=== PATIENT | female | born 1965 | race Caucasian/White ===

== ENCOUNTER 2017-04-20 15:21 | Emergency (ER) | payer BC, OTHER ==
[2017-04-20] MEDS ORDERED: NS 0.9% 1000 ML* 1,000 ML IV ONE (17:28)
[2017-04-20 17:52] LABS: ABS Basophils 0 10^3/ul (0-0.2); ABS Eosinophils 0.1 10^3/ul (0-0.6); ABS Lymphocytes 1.7 10^3/ul (1.0-4.8); ABS Monocytes 0.4 10^3/ul (0-0.8); ABS Neutrophils 4.5 10^3/ul (1.5-7.7); ABS Nucleated RBC 0 10^3/ul; Eosinophil % 1.8 % (0-6); Hematocrit 40 % (35-47); Hemoglobin 13.9 g/dl (12.0-16.0); Lymphocyte % 25.1 % (25-47); Mean Corpuscular HGB Conc 35 g/dl (31-36); Mean Corpuscular Hemoglobin 30 pg (27-31); Mean Corpuscular Volume 87 fL (80-97); Mean Platelet Volume 8 um3 (7.4-10.4); Nucleated Red Blood Cells % 0; Platelet Count 246 10^3/ul (150-450); Red Blood Count 4.63 10^6/ul (4.0-5.4); Red Cell Distribution Width 13 % (10.5-15); White Blood Count 6.7 10^3/ul (3.5-10.8)
[2017-04-20 18:07] LABS: EGFR Non-African American 85.4 (>60)
--- NOTE | 2017-04-20 18:55 | RAD ---
Indication: Chest pain. 2 views of the chest including dual energy PA views are reviewed. Comparison is made with previous exam dated February 22, 2008. No mediastinal shift is noted. Heart is of normal size and configuration. Lung hall appear clear. IMPRESSION: No active cardiopulmonary disease is noted.
--- NOTE | 2017-04-20 19:00 | RAD ---
Indication: Left elbow injury. 4 views of left elbow are reviewed. There is no definite fracture although the study is limited as the lateral view is limited. No obvious joint effusion is noted. IMPRESSION: No definite fracture is noted. Lateral view is limited.
--- NOTE | 2017-04-20 19:03 | RAD ---
Indication: Right elbow pain. 4 views of the right elbow demonstrates no fracture or joint effusion. No other bone or joint abnormality is noted. IMPRESSION: Unremarkable right elbow.
[2017-04-20] MEDS ORDERED: Ketorolac INJ* 30 MG/ML 1 ML VIAL IV PUSH ONE (21:05)
[2017-04-20 22:18] VITALS: BP 124/76
--- NOTE | 2017-04-27 23:41 | ED ---
Dawit Amaro Julia, scribed for Mike Tapia MD on 04/20/17 at 1724 . Complex/Multi-Sys Presentation - HPI Summary HPI Summary: This patient is a 51 year old F presenting to [facility] with a chief complaint of sudden intermittent left arm and sharp non-exertional chest pain since 03:00 now spreading to the right arm. Patient reports headaches, pallor, sweating, and SOB. She states it felt like a fever in her arm at the time of onset. Patient denies nausea and lower extremity edema. The patient rates the pain 10/10 in severity. Symptoms aggravated by moving arms. Patient is diabetic and has not checked her blood glucose in the last two days. - History Of Current Complaint Chief Complaint: EDExtremityUpper Time Seen by Provider: 04/20/17 15:23 Hx Obtained From: Patient Onset/Duration: Sudden Onset, Lasting Days Timing: Intermittent, Lasting: Location: Pain At: - arms, and chest Character: Sharp - chest pain, Throbbing - "fever in arms" Aggravating Factor(s): arm movement Associated Signs And Symptoms: Positive: SOB, Chest Pain, Other - bilateral arm pain Related History: Other - DM - Allergies/Home Medications Allergies/Adverse Reactions: Allergies Allergy/AdvReac Type Severity Reaction Status Date / Time aspirin Allergy Severe Rash Verified 04/20/17 15:26 hydrocodone Allergy Severe Difficulty Verified 04/20/17 15:26 Breathing Penicillins Allergy Severe Rash Verified 04/20/17 15:26 PMH/Surg Hx/FS Hx/Imm Hx Endocrine/Hematology History: Reports: Hx Diabetes EENT History: Denies: Hx Deafness Infectious Disease History: No Infectious Disease History: Denies: Traveled Outside the [place] in Last 30 Days - Family History Known Family History: Positive: Cardiac Disease - Social History Occupation: Employed Full-time Lives: With Family Review of Systems Positive: Skin Diaphoresis Positive: Chest Pain Positive: Shortness Of Breath Positive: Myalgia - bilateral arm pain Positive: Other - pallor Positive: Headache All Other Systems Reviewed And Are Negative: Yes Physical Exam - Summary Physical Exam Summary: Appearance: Well appearing, no pain distress Skin: warm, dry, reflects adequate perfusion Head/face: normal Eyes: EOMI, JOSÉ ENT: normal Neck: supple, non-tender Respiratory: CTA, breath sounds present Cardiovascular: RRR, pulses symmetrical Abdomen: non-tender, soft Bowel: present Musculoskeletal: strength/ROM intact, tenderness to the bilateral lateral epicondyles worse on the left, upper extremities have mild erythema with no evidence of cellutis, FROM of shoulders Neuro: normal, sensory motor intact, A&Ox3 Triage Information Reviewed: Yes Vital Signs On Initial Exam: Initial Vitals Temp Pulse Resp BP Pulse Ox 98.2 F 72 18 132/83 98 04/20/17 15:22 04/20/17 15:22 04/20/17 15:22 04/20/17 15:22 04/20/17 15:22 Vital Signs Reviewed: Yes Diagnostics - Vital Signs Vital Signs Temp Pulse Resp BP Pulse Ox 04/20/17 15:22 98.2 F 72 18 132/83 98 - Laboratory Lab Results: Lab Results 04/20/17 04/20/17 04/20/17 Range/Units 17:26 17:35 17:35 WBC 6.7 (3.5-10.8) 10^3/ul RBC 4.63 (4.0-5.4) 10^6/ul Hgb 13.9 (12.0-16.0) g/dl Hct 40 (35-47) % MCV 87 (80-97) fL MCH 30 (27-31) pg MCHC 35 (31-36) g/dl RDW 13 (10.5-15) % Plt Count 246 (150-450) 10^3/ul MPV 8 (7.4-10.4) um3 Neut % (Auto) 66.6 (38-83) % Lymph % (Auto) 25.1 (25-47) % Lipscomb % (Auto) 6.0 (0-7) % Eos % (Auto) 1.8 (0-6) % Baso % (Auto) 0.5 (0-2) % Absolute Neuts (auto) 4.5 (1.5-7.7) 10^3/ul Absolute Lymphs (auto) 1.7 (1.0-4.8) 10^3/ul Absolute Monos (auto) 0.4 (0-0.8) 10^3/ul Absolute Eos (auto) 0.1 (0-0.6) 10^3/ul Absolute Basos (auto) 0 (0-0.2) 10^3/ul Absolute Nucleated RBC 0 10^3/ul Nucleated RBC % 0 D-Dimer, Quantitative (Less Than 230) ng/mL Sodium 135 (133-145) mmol/L Potassium 3.9 (3.5-5.0) mmol/L Chloride 99 L (101-111) mmol/L Carbon Dioxide 30 (22-32) mmol/L Anion Gap 6 (2-11) mmol/L BUN 16 (6-24) mg/dL Creatinine 0.72 (0.51-0.95) mg/dL Est GFR ( Amer) 109.8 (>60) Est GFR (Non-Af Amer) 85.4 (>60) BUN/Creatinine Ratio 22.2 H (8-20) Glucose 275 H (70-100) mg/dL POC Glucose (mg/dL) 284 H (70-100) mg/dL Calcium 9.5 (8.6-10.3) mg/dL Total Bilirubin 0.60 (0.2-1.0) mg/dL AST 17 (13-39) U/L ALT 24 (7-52) U/L Alkaline Phosphatase 153 H (34-104) U/L Troponin I 0.00 (<0.04) ng/mL Total Protein 7.3 (6.4-8.9) g/dL Albumin 4.1 (3.2-5.2) g/dL Globulin 3.2 (2-4) g/dL Albumin/Globulin Ratio 1.3 (1-3) Lipase 25 (11.0-82.0) U/L 04/20/17 Range/Units 17:35 WBC (3.5-10.8) 10^3/ul RBC (4.0-5.4) 10^6/ul Hgb (12.0-16.0) g/dl Hct (35-47) % MCV (80-97) fL MCH (27-31) pg MCHC (31-36) g/dl RDW (10.5-15) % Plt Count (150-450) 10^3/ul MPV (7.4-10.4) um3 Neut % (Auto) (38-83) % Lymph % (Auto) (25-47) % Lipscomb % (Auto) (0-7) % Eos % (Auto) (0-6) % Baso % (Auto) (0-2) % Absolute Neuts (auto) (1.5-7.7) 10^3/ul Absolute Lymphs (auto) (1.0-4.8) 10^3/ul Absolute Monos (auto) (0-0.8) 10^3/ul Absolute Eos (auto) (0-0.6) 10^3/ul Absolute Basos (auto) (0-0.2) 10^3/ul Absolute Nucleated RBC 10^3/ul Nucleated RBC % D-Dimer, Quantitative < 200 (Less Than 230) ng/mL Sodium (133-145) mmol/L Potassium (3.5-5.0) mmol/L Chloride (101-111) mmol/L Carbon Dioxide (22-32) mmol/L Anion Gap (2-11) mmol/L BUN (6-24) mg/dL Creatinine (0.51-0.95) mg/dL Est GFR ( Amer) (>60) Est GFR (Non-Af Amer) (>60) BUN/Creatinine Ratio (8-20) Glucose (70-100) mg/dL POC Glucose (mg/dL) (70-100) mg/dL Calcium (8.6-10.3) mg/dL Total Bilirubin (0.2-1.0) mg/dL AST (13-39) U/L ALT (7-52) U/L Alkaline Phosphatase (34-104) U/L Troponin I (<0.04) ng/mL Total Protein (6.4-8.9) g/dL Albumin (3.2-5.2) g/dL Globulin (2-4) g/dL Albumin/Globulin Ratio (1-3) Lipase (11.0-82.0) U/L Result Diagrams: 04/20/17 17:35 04/20/17 17:35 Lab Statement: Any lab studies that have been ordered have been reviewed, and results considered in the medical decision making process. - Radiology CXR Radiology Interpretation Completed By: Radiologist - No active cardiopulmonary disease is noted. ED Physician has reviewed this report. L Elbow Radiology Interpretation Completed By: Radiologist - No definite fracture is noted. Lateral view is limited. ED Physician has reviewed this report. R Elbow Radiology Interpretation Completed By: Radiologist - Unremarkable right elbow. ED Physician has reviewed this report. - EKG 1534 Cardiac Rate: NL - at 77 BPM EKG Rhythm: Sinus Rhythm EKG Interpretation: normal Complex Multi-Symp Course/Dx Course Of Treatment: Patient presents with intermittent left arm and sharp non -exertional chest pain since 03:00 04/18/2017 now spreading to the right arm. Patient reports headaches, pallor, sweating, and SOB. EKG is unremarkable. CXR is of no acute concern. Both elbow X-rays are unremarkable. Bloodwork is unremarkable. Patient is given IV fluids. - Diagnoses Provider Diagnoses: Lateral epicondylitis, Atypical chest pain Discharge - Discharge Plan Condition: Good Disposition: HOME Discharge Disposition Comment: discharge to home Patient Education Materials: [employer] [place] (ED) Forms: *Work Release Referrals: Whitney Gore MD [Primary Care Provider] - The documentation as recorded by the Dawit day Julia accurately reflects the service I personally performed and the decisions made by , Mike Tapia MD.
== END 2017-04-20 22:17 | disposition home or self-care (01) ==
LOC: ED 15:21
DX: M77.12 Lateral epicondylitis, left elbow (principal); R07.89 Other chest pain; R06.02 Shortness of breath; R07.9 Chest pain, unspecified; M79.602 Pain in left arm; M79.601 Pain in right arm; R51 Headache
CPT/HCPCS: 36415; 71046; 80053; 83690; 84484; 85025; 85379; 93005; 96374; 99283; J1885